=== PATIENT | male | born 1940 | race African-American/Black ===

== ENCOUNTER 2017-05-13 15:06 | Inpatient (IN) | payer MEDICARE, MEDICAID ==
[~2017-05-13] VITALS: Ht 193 cm; Wt 122.3 kg
[~2017-05-13 15:06] MED LIST: ALLO300T2 PO; ASPI-867 PO; CALC-25 PO; CHOL100053 PO; COLC0.6T66 PO; DOXA8TAB2 PO; FERR-43 PO; FOLI-43 PO; FURO40TA5 PO; LISI40TA4 PO; SIMV20TA2 PO; TRIA1TAB3; VALS160T23 PO; VERA-4 PO
[2017-05-13] MEDS ORDERED: ASPIRIN 81MG TABLET PO STA (15:53)
[2017-05-13 16:44] LABS: HEMATOCRIT. 40.9 % (42.0-52.0); HEMOGLOBIN. 13.3 g/dL (14.0-18.0); MEAN CORPUSCULAR HEMOGLOBIN 30.7 pg (28.0-32.0); MEAN CORPUSCULAR VOLUME 94.2 fL (80.0-94.0); MEAN PLATELET VOLUME 8.9 fl (7.4-10.4); PLATELET 140 x1000/uL (130-400); RED BLOOD CELL COUNT 4.34 mill/uL (4.7-6.1)
[2017-05-13 16:55] LABS: CHLORIDE 112 mEq/L (98-107)
[2017-05-13 17:02] LABS: PLATELET ESTIMATE NORMAL
[2017-05-13 17:04] LABS: INR 1.1; PARTIAL THROMBOPLASTIN TIME 24.9 sec (23.4-31.0); PROTHROMBIN TIME 11.4 sec (9.4-11.6); TROPONIN I 0.53 ng/mL (0.00-0.04)
[2017-05-13] MEDS ORDERED: ENOXAPARIN 100MG/ML SYR SUBCUT ONE (18:15)
[2017-05-13] MEDS ORDERED: LEVOFLOXACIN 750MG PREMIX 150 ML IV ONE (21:00)
[2017-05-13] MEDS ORDERED: SODIUM CHLORIDE 0.9% 1000ML BAG (SEPSIS BOLUS) IV ONE (21:00)
[2017-05-13] MEDS ORDERED: MORPHINE SULFATE 4 MG/ML CPJ (NOT FOR IM USE) IV PRN (23:45)
[2017-05-13] MEDS ORDERED: DOCUSATE SODIUM 100MG CAPSULE PO PRN (23:45)
[2017-05-13] MEDS ORDERED: NA PHOS,M-B/NA PHOS,DI-BA ENEMA 118ML PR PRN (23:45)
[2017-05-13] MEDS ORDERED: ONDANSETRON HCL 4MG/2ML VIAL IV PRN (23:45)
[2017-05-13] MEDS ORDERED: MAGNESIUM/ALUMINUM HYDROXIDE/SIMETHICONE 30ML UDC PO PRN (23:45)
[2017-05-13] MEDS ORDERED: CLONIDINE 0.1MG TABLET PO PRN (23:45)
[2017-05-13] MEDS ORDERED: HYDROCODONE/ACETAMINOPHEN 5/325MG TABLET PO PRN (23:45)
[2017-05-13] MEDS ORDERED: ACETAMINOPHEN 650MG SUPP PR PRN (23:45)
[2017-05-13] MEDS ORDERED: DIPHENHYDRAMINE 50MG/ML VIAL IV PRN (23:45)
[2017-05-13] MEDS ORDERED: ACETAMINOPHEN 325MG TABLET PO PRN (23:45)
[2017-05-13] MEDS ORDERED: IPRATROPIUM/ALBUTEROL 0.5-3(2.5)MG/3ML NEB INH PRN (23:45)
[2017-05-13] MEDS ORDERED: GUAIFENESIN 200MG/10ML SUGAR FREE UDC PO PRN (23:45)
[2017-05-13] MEDS ORDERED: HYDROCODONE/ACETAMINOPHEN 10/325MG TABLET PO PRN (23:45)
[2017-05-13] MEDS ORDERED: ACETAMINOPHEN 650MG/20.3ML UDC GT PRN (23:45)
[2017-05-14] MEDS ORDERED: ERGO400T7 PO (01:15)
[2017-05-14 04:13] VITALS: BP 117/78
[2017-05-14 04:49] VITALS: BP 157/81
[2017-05-14 07:49] LABS: BASOPHILS % 0.1 % (0.0-2.0); EOSINOPHILS % 2.2 % (0.0-5.0); HEMATOCRIT. 37.7 % (42.0-52.0); HEMOGLOBIN. 12.3 g/dL (14.0-18.0); LYMPHOCYTES % 15.1 % (20.0-50.0); MEAN CORPUSCULAR HEMOGLOBIN 30.8 pg (28.0-32.0); MEAN CORPUSCULAR VOLUME 94.8 fL (80.0-94.0); MEAN PLATELET VOLUME 9.2 fl (7.4-10.4); MONOCYTES % 9.5 % (2.0-8.0); NEUTROPHILS % 73.1 % (40.0-76.0); PLATELET 126 x1000/uL (130-400); RED BLOOD CELL COUNT 3.98 mill/uL (4.7-6.1); RED CELL DISTRIBUTION WIDTH 14.2 % (11.6-14.6)
[2017-05-14 08:07] LABS: CHLORIDE 112 mEq/L (98-107)
[2017-05-14 08:16] LABS: CREATINE KINASE 43 IU/L (39-308); HDL CHOLESTEROL 51 mg/dL (40-59); LDL CHOLESTEROL 69 mg/dL (5-100); TROPONIN I 0.36 ng/mL (0.00-0.04)
[2017-05-14 08:30] VITALS: BP 132/58
[2017-05-14] MEDS: FUROSEMIDE 40MG/4ML VIAL IVP SCH (10:44)
[2017-05-14 12:00] VITALS: BP 137/79
[2017-05-14] MEDS ORDERED: AMLODIPINE 5MG TABLET PO SCH (13:00)
[2017-05-14 13:54] LABS: CLARITY URINE CLEAR (CLEAR); COLOR URINE YELLOW (YELLOW); KETONES URINE NEGATIVE (NEGATIVE); LEUKOCYTE ESTERASE URINE NEGATIVE (NEGATIVE); NITRITE URINE NEGATIVE (NEGATIVE); OCCULT BLOOD URINE 1+ (NEGATIVE); PROTEIN URINE NEGATIVE (NEGATIVE); SPECIFIC GRAVITY URINE 1.013 (1.005-1.030)
[2017-05-14] MEDS ORDERED: ENOXAPARIN 100MG/ML SYR SUBCUT SCH (14:00)
[2017-05-14 16:00] VITALS: BP 121/67
[2017-05-14] MEDS ORDERED: LEVOFLOXACIN 500MG PREMIX 100 ML IV SCH (17:00)
[2017-05-14] MEDS ORDERED: ENOXAPARIN 120MG/0.8ML SYR SUBCUT SCH (19:00)
[2017-05-14 19:23] LABS: TROPONIN I 0.26 ng/mL (0.00-0.04)
[2017-05-14 20:00] VITALS: BP 125/68
[2017-05-14] MEDS: ATORVASTATIN CALCIUM 10MG TABLET PO SCH (20:26)
[2017-05-14] MEDS: SODIUM CHLORIDE 0.9% INJ 3ML FLUSH IVF SCH (20:26)
[2017-05-15] VITALS: BP 122/73
[2017-05-15 04:00] VITALS: BP 129/76
[2017-05-15] MEDS: SODIUM CHLORIDE 0.9% INJ 3ML FLUSH IVF SCH ×3 (05:31→21:22)
[2017-05-15 08:00] VITALS: BP 104/77
[2017-05-15] MEDS: AMLODIPINE 5MG TABLET PO SCH (09:00)
[2017-05-15] MEDS: FUROSEMIDE 40MG/4ML VIAL IVP SCH (09:51)
[2017-05-15 12:00] VITALS: BP 129/63
[2017-05-15] MEDS ORDERED: LEVO500T2 PO (12:08)
[2017-05-15 16:00] VITALS: BP 122/69
[2017-05-15 20:00] VITALS: BP 129/61
[2017-05-15] MEDS: ATORVASTATIN CALCIUM 10MG TABLET PO SCH (21:22)
[2017-05-16] VITALS: BP 145/60
[2017-05-16 04:00] VITALS: BP 134/71
[2017-05-16] MEDS: SODIUM CHLORIDE 0.9% INJ 3ML FLUSH IVF SCH ×3 (07:44→21:48)
[2017-05-16 08:00] VITALS: BP 123/67
[2017-05-16] MEDS: FUROSEMIDE 40MG TABLET PO SCH (09:20)
[2017-05-16] MEDS: AMLODIPINE 5MG TABLET PO SCH (09:20)
[2017-05-16 12:00] VITALS: BP 103/64
[2017-05-16 16:00] VITALS: BP 109/70
[2017-05-16] MEDS: APIXABAN 5 MG TABLET PO SCH ×2 (16:03→21:48)
[2017-05-16] MEDS ORDERED: DEXTROSE 50% WATER 50ML SYRINGE IV PRN (17:00)
[2017-05-16] MEDS ORDERED: INSULIN LISPRO 100 UNITS/ML SUBCUT SCH (17:15)
[2017-05-16] MEDS: BLOOD SUGAR DIAGNOSTIC STRIP TEST SCH ×2 (17:21→21:48)
[2017-05-16 20:00] VITALS: BP 133/70
[2017-05-16] MEDS ORDERED: GUAIFENESIN 600MG ER TABLET PO SCH (21:00)
[2017-05-16] MEDS: ATORVASTATIN CALCIUM 10MG TABLET PO SCH (21:48)
[2017-05-17] VITALS: BP 121/67
[2017-05-17 04:00] VITALS: BP 127/71
[2017-05-17] MEDS: SODIUM CHLORIDE 0.9% INJ 3ML FLUSH IVF SCH ×2 (06:15→19:25)
[2017-05-17 08:00] VITALS: BP 110/67
[2017-05-17] MEDS: AMLODIPINE 5MG TABLET PO SCH (09:00)
[2017-05-17] MEDS ORDERED: FENOFIBRATE NANOCRYSTALLIZED 48MG TABLET PO SCH (09:00)
[2017-05-17] MEDS: APIXABAN 5 MG TABLET PO SCH ×2 (10:22→21:20)
[2017-05-17] MEDS: FUROSEMIDE 40MG TABLET PO SCH (10:22)
[2017-05-17 12:00] VITALS: BP 111/35
[2017-05-17 16:00] VITALS: BP 120/66
[2017-05-17 20:00] VITALS: BP 127/70
[2017-05-17] MEDS: ATORVASTATIN CALCIUM 10MG TABLET PO SCH (21:20)
[2017-05-18] VITALS: BP 137/77
[2017-05-18 04:00] VITALS: BP 138/79
[2017-05-18] MEDS: SODIUM CHLORIDE 0.9% INJ 3ML FLUSH IVF SCH ×3 (07:00→21:28)
[2017-05-18 08:00] VITALS: BP 130/73
[2017-05-18] MEDS: APIXABAN 5 MG TABLET PO SCH ×2 (09:05→21:27)
[2017-05-18] MEDS: AMLODIPINE 5MG TABLET PO SCH (09:05)
[2017-05-18] MEDS: FUROSEMIDE 40MG TABLET PO SCH (09:06)
[2017-05-18 12:00] VITALS: BP 120/54
[2017-05-18 16:00] VITALS: BP 115/69
[2017-05-18 20:00] VITALS: BP 125/69
[2017-05-18] MEDS: ATORVASTATIN CALCIUM 10MG TABLET PO SCH (21:27)
[2017-05-19] VITALS: BP 137/73
[2017-05-19 04:00] VITALS: BP 137/78
[2017-05-19] MEDS: SODIUM CHLORIDE 0.9% INJ 3ML FLUSH IVF SCH (06:31)
[2017-05-19 08:00] VITALS: BP 137/78
[2017-05-19] MEDS: AMLODIPINE 5MG TABLET PO SCH (08:51)
[2017-05-19] MEDS: FUROSEMIDE 40MG TABLET PO SCH (08:52)
[2017-05-19] MEDS: APIXABAN 5 MG TABLET PO SCH (08:52)
[2017-05-19 12:00] VITALS: BP 130/76
[2017-05-19 14:19] VITALS: BP 130/76
== END 2017-05-19 15:17 | disposition home or self-care (01) | DRG 133 ==
LOC: ER 15:06 → 5WST 18:57 → ENRESERV 21:23
PROVIDERS: ADMIT Family Medicine; ATTEND Family Medicine
DX: J96.00 Acute respiratory failure, unspecified whether with hypoxia or hypercapnia (principal); J69.0 Pneumonitis due to inhalation of food and vomit; I50.43 Acute on chronic combined systolic (congestive) and diastolic (congestive) heart failure; I47.2 Ventricular tachycardia; J18.9 Pneumonia, unspecified organism; R53.2 Functional quadriplegia; E46 Unspecified protein-calorie malnutrition; I42.0 Dilated cardiomyopathy; I69.351 Hemiplegia and hemiparesis following cerebral infarction affecting right dominant side; I82.431 Acute embolism and thrombosis of right popliteal vein; I11.0 Hypertensive heart disease with heart failure; D69.6 Thrombocytopenia, unspecified; J44.0 Chronic obstructive pulmonary disease with (acute) lower respiratory infection; E86.0 Dehydration; I42.9 Cardiomyopathy, unspecified; I27.20 Pulmonary hypertension, unspecified; I35.0 Nonrheumatic aortic (valve) stenosis; I82.531 Chronic embolism and thrombosis of right popliteal vein; I89.0 Lymphedema, not elsewhere classified; D64.9 Anemia, unspecified; W18.30XA Fall on same level, unspecified, initial encounter; R79.89 Other specified abnormal findings of blood chemistry; I45.10 Unspecified right bundle-branch block; E66.9 Obesity, unspecified; E78.5 Hyperlipidemia, unspecified; E87.1 Hypo-osmolality and hyponatremia; I25.10 Atherosclerotic heart disease of native coronary artery without angina pectoris; N40.0 Benign prostatic hyperplasia without lower urinary tract symptoms; R62.7 Adult failure to thrive; Z79.01 Long term (current) use of anticoagulants; Z79.899 Other long term (current) drug therapy; Z99.3 Dependence on wheelchair; Z88.0 Allergy status to penicillin; Z79.82 Long term (current) use of aspirin; Z68.32 Body mass index [BMI] 32.0-32.9, adult
CPT/HCPCS: 36415; 71045; 80053; 80061; 81003; 82550; 82962; 83605; 83880; 84484; 85025; 85610; 85730; 87040; 87086; 92610; 93005; 93306; 93970; 96372; 97110; 97162; 97166; 97530; 97535; 99285; J1650; J1940; J1956; J7030; J7050; J7620

== ENCOUNTER 2017-06-20 00:31 | Inpatient (IN) | payer MEDICARE, MEDICAID ==
[~2017-06-20] VITALS: Ht 182.9 cm; Wt 112.5 kg
[~2017-06-20 00:31] MED LIST changes: +ALBU18HF2 IH; -ALLO300T2 PO; +APIX2.5T PO; +APIX5TAB PO; -CALC-25 PO; -CHOL100053 PO; -COLC0.6T66 PO; -DOXA8TAB2 PO; -FERR-43 PO; +FLUT1DIS3 IH; -FOLI-43 PO; -LISI40TA4 PO; -SIMV20TA2 PO; -TRIA1TAB3; -VALS160T23 PO; -VERA-4 PO
[2017-06-20] MEDS ORDERED: ALBUTEROL (0.083%) 2.5MG/3ML NEB HHN STA (01:16)
[2017-06-20] MEDS ORDERED: IPRATROPIUM BROMIDE (0.02%) 0.5MG/2.5ML NEB HHN STA (01:16)
[2017-06-20] MEDS ORDERED: METHYLPREDNISOLONE SOD SUCC 125 MG/2 ML VIAL IV STA (01:16)
[2017-06-20] MEDS ORDERED: MAGNESIUM 2 G PREMIX 50 ML IV ONE (01:30)
[2017-06-20 01:52] LABS: BG BASE EXCESS 4.8 mmol/L (-2.0-2.0); BG CARBOXYHEMOGLOBIN 1.5 % (0.5-1.5); BG DEOXYHEMOGLOBIN 1.6 % (0.0-5.0); BG FRACTION INSPIRED OXYGEN 45; BG HCO3 ACT 30.7 mmol/L (22.0-26.0); BG METHEMOGLOBIN 0.3 % (0.0-1.5); BG OXYGEN SATURATION 98.4 % (92.0-98.5); BG OXYHEMOGLOBIN 96.6 % (94.0-97.0); BG PCO2 50.4 mmHg (35.0-45.0); BG PH 7.402 (7.350-7.450); BG PO2 129.9 mmHg (75.0-100.0); BG SAMPLE SITE LEFT RADIAL; BG TOTAL HEMOGLOBIN 13.8 g/dL (12.0-18.0)
[2017-06-20] MEDS ORDERED: LEVOFLOXACIN 750MG PREMIX 150 ML IV ONE (02:15)
[2017-06-20 02:24] LABS: BASOPHILS % 0.4 % (0.0-2.0); EOSINOPHILS % 1.3 % (0.0-5.0); HEMATOCRIT. 39.2 % (42.0-52.0); HEMOGLOBIN. 12.9 g/dL (14.0-18.0); LYMPHOCYTES % 7.5 % (20.0-50.0); MEAN CORPUSCULAR HEMOGLOBIN 30.4 pg (28.0-32.0); MEAN CORPUSCULAR VOLUME 92.7 fL (80.0-94.0); MEAN PLATELET VOLUME 9.9 fl (7.4-10.4); NEUTROPHILS % 82.8 % (40.0-76.0); PLATELET 110 x1000/uL (130-400); RED BLOOD CELL COUNT 4.23 mill/uL (4.7-6.1); RED CELL DISTRIBUTION WIDTH 15.9 % (11.6-14.6)
[2017-06-20 02:26] LABS: CHLORIDE 111 mEq/L (98-107)
[2017-06-20 06:08] VITALS: BP 144/89
[2017-06-20] MEDS ORDERED: ALBUTEROL (0.083%) 2.5MG/3ML NEB HHN PRN (06:30)
[2017-06-20 06:45] VITALS: BP 144/89
[2017-06-20 08:00] VITALS: BP 123/86
[2017-06-20] MEDS ORDERED: FUROSEMIDE 40MG TABLET PO SCH (09:00)
[2017-06-20] MEDS ORDERED: ENOXAPARIN 40MG/0.4ML SYR SUBCUT SCH (09:00)
[2017-06-20] MEDS: POTASSIUM CHLORIDE 20MEQ TABLET SR PO SCH (09:18)
[2017-06-20] MEDS ORDERED: IPRATROPIUM/ALBUTEROL 0.5-3(2.5)MG/3ML NEB HHN PRN (09:30)
[2017-06-20 12:00] VITALS: BP 114/73
[2017-06-20] MEDS: LEVOFLOXACIN 500MG TABLET PO SCH (12:38)
[2017-06-20] MEDS: METHYLPREDNISOLONE SOD SUCC 40 MG/ML VIAL IV SCH ×3 (12:38→20:54)
[2017-06-20] MEDS: BUDESONIDE 0.5MG/2ML NEB HHN SCH ×2 (12:44→21:22)
[2017-06-20] MEDS: IPRATROPIUM/ALBUTEROL 0.5-3(2.5)MG/3ML NEB HHN SCH ×3 (12:48→21:22)
[2017-06-20 16:00] VITALS: BP 117/77
[2017-06-20] MEDS: APIXABAN 5 MG TABLET PO SCH (17:29)
[2017-06-20] MEDS: FUROSEMIDE 40MG/4ML VIAL IVP SCH (17:29)
[2017-06-20 17:46] LABS: CLARITY URINE TURBID (CLEAR); COLOR URINE ORANGE (YELLOW); KETONES URINE NEGATIVE (NEGATIVE); LEUKOCYTE ESTERASE URINE 1+ (NEGATIVE); NITRITE URINE POSITIVE (NEGATIVE); OCCULT BLOOD URINE 3+ (NEGATIVE); PROTEIN URINE 3+ (NEGATIVE); SPECIFIC GRAVITY URINE 1.025 (1.005-1.030)
[2017-06-20 18:31] LABS: *AMPHETAMINES SCREEN URINE NEGATIVE (NEGATIVE); *BARBITURATES SCREEN URINE NEGATIVE (NEGATIVE); *BENZODIAZEPINES SCREEN URINE NEGATIVE (NEGATIVE)
[2017-06-20 18:32] LABS: *COCAINE SCREEN URINE NEGATIVE (NEGATIVE); CANNABINOID URINE SCREEN NEGATIVE (NEGATIVE); METHADONE URINE SCREEN NEGATIVE (NEGATIVE); OPIATES URINE SCREEN PRESUMTIVE POSITIVE (NEGATIVE); PHENCYCLIDINE URINE SCREEN NEGATIVE (NEGATIVE)
[2017-06-20 20:00] VITALS: BP 112/64
[2017-06-21] VITALS: BP 110/69
[2017-06-21] MEDS: IPRATROPIUM/ALBUTEROL 0.5-3(2.5)MG/3ML NEB HHN SCH ×7 (00:44→23:51)
[2017-06-21 04:00] VITALS: BP 103/70
[2017-06-21] MEDS: METHYLPREDNISOLONE SOD SUCC 40 MG/ML VIAL IV SCH ×3 (05:45→21:38)
[2017-06-21 06:18] LABS: HEMATOCRIT. 36.3 % (42.0-52.0); HEMOGLOBIN. 12.2 g/dL (14.0-18.0); MEAN CORPUSCULAR HEMOGLOBIN 30.9 pg (28.0-32.0); MEAN CORPUSCULAR VOLUME 92.4 fL (80.0-94.0); MEAN PLATELET VOLUME 10.4 fl (7.4-10.4); PLATELET 109 x1000/uL (130-400); RED BLOOD CELL COUNT 3.93 mill/uL (4.7-6.1); RED CELL DISTRIBUTION WIDTH 16.2 % (11.6-14.6)
[2017-06-21 08:00] VITALS: BP_SYST 101; BP_SYST 96; BP_DIAS 63; BP_DIAS 65
[2017-06-21] MEDS: APIXABAN 5 MG TABLET PO SCH ×2 (08:53→18:26)
[2017-06-21] MEDS: LEVOFLOXACIN 500MG TABLET PO SCH (08:53)
[2017-06-21] MEDS: POTASSIUM CHLORIDE 20MEQ TABLET SR PO SCH (08:53)
[2017-06-21] MEDS: FUROSEMIDE 40MG/4ML VIAL IVP SCH ×2 (08:53→18:26)
[2017-06-21] MEDS: BUDESONIDE 0.5MG/2ML NEB HHN SCH ×2 (09:35→19:48)
[2017-06-21 12:00] VITALS: BP 106/61
[2017-06-21 12:32] LABS: PLATELET ESTIMATE SLIGHTLY DECREASED
[2017-06-21 16:00] VITALS: BP 99/52
[2017-06-21 20:00] VITALS: BP 103/57
[2017-06-21] MEDS: NEOMY SULF/BACITRAC ZN/POLY OINT 28GM TOP SCH (21:38)
[2017-06-21] MEDS ORDERED: HYDROCODONE/ACETAMINOPHEN 5/325MG TABLET PO PRN (23:15)
[2017-06-22] VITALS: BP 110/62
[2017-06-22] MEDS: IPRATROPIUM/ALBUTEROL 0.5-3(2.5)MG/3ML NEB HHN SCH ×6 (01:12→21:41)
[2017-06-22 04:00] VITALS: BP 106/53
[2017-06-22] MEDS: METHYLPREDNISOLONE SOD SUCC 40 MG/ML VIAL IV SCH ×3 (05:50→21:15)
[2017-06-22 06:34] LABS: HEMATOCRIT. 33.4 % (42.0-52.0); HEMOGLOBIN. 11.1 g/dL (14.0-18.0); MEAN CORPUSCULAR HEMOGLOBIN 30.6 pg (28.0-32.0); MEAN CORPUSCULAR VOLUME 92.3 fL (80.0-94.0); MEAN PLATELET VOLUME 10.4 fl (7.4-10.4); PLATELET 105 x1000/uL (130-400); RED BLOOD CELL COUNT 3.62 mill/uL (4.7-6.1); RED CELL DISTRIBUTION WIDTH 15.7 % (11.6-14.6)
[2017-06-22 08:00] VITALS: BP 112/65
[2017-06-22 08:30] LABS: PLATELET ESTIMATE SLIGHTLY DECREASED
[2017-06-22] MEDS: BUDESONIDE 0.5MG/2ML NEB HHN SCH ×2 (09:02→21:40)
[2017-06-22] MEDS: APIXABAN 5 MG TABLET PO SCH ×2 (09:18→16:24)
[2017-06-22] MEDS: FUROSEMIDE 40MG/4ML VIAL IVP SCH (09:18)
[2017-06-22] MEDS: NEOMY SULF/BACITRAC ZN/POLY OINT 28GM TOP SCH (09:19)
[2017-06-22] MEDS: LEVOFLOXACIN 500MG TABLET PO SCH (09:19)
[2017-06-22] MEDS: POTASSIUM CHLORIDE 20MEQ TABLET SR PO SCH (09:19)
[2017-06-22 12:00] VITALS: BP 120/74
[2017-06-22 16:00] VITALS: BP 110/70
[2017-06-22 20:00] VITALS: BP 113/67
[2017-06-23] VITALS: BP 118/70
[2017-06-23] MEDS: IPRATROPIUM/ALBUTEROL 0.5-3(2.5)MG/3ML NEB HHN SCH ×5 (01:10→22:33)
[2017-06-23 04:00] VITALS: BP 116/69
[2017-06-23] MEDS: METHYLPREDNISOLONE SOD SUCC 40 MG/ML VIAL IV SCH ×3 (05:25→21:07)
[2017-06-23 07:35] LABS: HEMATOCRIT. 34.3 % (42.0-52.0); HEMOGLOBIN. 11.5 g/dL (14.0-18.0); MEAN CORPUSCULAR HEMOGLOBIN 30.9 pg (28.0-32.0); MEAN CORPUSCULAR VOLUME 92.6 fL (80.0-94.0); MEAN PLATELET VOLUME 10.1 fl (7.4-10.4); PLATELET 108 x1000/uL (130-400); RED BLOOD CELL COUNT 3.71 mill/uL (4.7-6.1); RED CELL DISTRIBUTION WIDTH 16.2 % (11.6-14.6)
[2017-06-23 07:54] LABS: CHLORIDE 105 mEq/L (98-107)
[2017-06-23 08:00] VITALS: BP 101/62
[2017-06-23 08:35] LABS: PLATELET ESTIMATE SLIGHTLY DECREASED
[2017-06-23] MEDS: APIXABAN 5 MG TABLET PO SCH ×2 (08:50→19:46)
[2017-06-23] MEDS: NEOMY SULF/BACITRAC ZN/POLY OINT 28GM TOP SCH (08:51)
[2017-06-23] MEDS: FUROSEMIDE 20MG TABLET PO SCH ×2 (08:51→21:07)
[2017-06-23] MEDS: POTASSIUM CHLORIDE 20MEQ TABLET SR PO SCH (08:51)
[2017-06-23] MEDS: LEVOFLOXACIN 500MG TABLET PO SCH (09:55)
[2017-06-23] MEDS: BUDESONIDE 0.5MG/2ML NEB HHN SCH (10:00)
[2017-06-23 12:00] VITALS: BP 107/61
[2017-06-23 16:00] VITALS: BP 134/85
[2017-06-23 20:00] VITALS: BP 118/75
[2017-06-24] VITALS: BP 120/77
[2017-06-24] MEDS: IPRATROPIUM/ALBUTEROL 0.5-3(2.5)MG/3ML NEB HHN SCH ×7 (01:27→23:43)
[2017-06-24 04:00] VITALS: BP 128/82
[2017-06-24 05:46] LABS: HEMATOCRIT. 34.8 % (42.0-52.0); HEMOGLOBIN. 11.6 g/dL (14.0-18.0); MEAN CORPUSCULAR HEMOGLOBIN 30.8 pg (28.0-32.0); MEAN CORPUSCULAR VOLUME 92.4 fL (80.0-94.0); MEAN PLATELET VOLUME 10.3 fl (7.4-10.4); PLATELET 117 x1000/uL (130-400); RED BLOOD CELL COUNT 3.76 mill/uL (4.7-6.1)
[2017-06-24] MEDS: METHYLPREDNISOLONE SOD SUCC 40 MG/ML VIAL IV SCH (06:11)
[2017-06-24 06:34] LABS: CHLORIDE 105 mEq/L (98-107)
[2017-06-24 08:00] VITALS: BP 114/68
[2017-06-24] MEDS: POTASSIUM CHLORIDE 20MEQ TABLET SR PO SCH (09:20)
[2017-06-24] MEDS: NEOMY SULF/BACITRAC ZN/POLY OINT 28GM TOP SCH (09:20)
[2017-06-24] MEDS: APIXABAN 5 MG TABLET PO SCH ×2 (09:20→18:37)
[2017-06-24] MEDS: FUROSEMIDE 20MG TABLET PO SCH ×2 (09:20→22:05)
[2017-06-24] MEDS: LEVOFLOXACIN 500MG TABLET PO SCH (11:06)
[2017-06-24 12:00] VITALS: BP 116/73
[2017-06-24 16:00] VITALS: BP 127/80
[2017-06-24] MEDS: PREDNISONE 20MG TABLET PO SCH (18:37)
[2017-06-24 19:56] LABS: PLATELET ESTIMATE DECREASED
[2017-06-24 20:00] VITALS: BP 134/79
[2017-06-25] VITALS: BP 136/85
[2017-06-25 04:00] VITALS: BP 142/83
[2017-06-25] MEDS: IPRATROPIUM/ALBUTEROL 0.5-3(2.5)MG/3ML NEB HHN SCH ×5 (04:02→20:03)
[2017-06-25 08:00] VITALS: BP 123/80
[2017-06-25] MEDS: POTASSIUM CHLORIDE 20MEQ TABLET SR PO SCH (09:07)
[2017-06-25] MEDS: FUROSEMIDE 20MG TABLET PO SCH ×2 (09:07→20:54)
[2017-06-25] MEDS: PREDNISONE 20MG TABLET PO SCH ×2 (09:07→18:03)
[2017-06-25] MEDS: APIXABAN 5 MG TABLET PO SCH ×2 (09:07→17:01)
[2017-06-25] MEDS: NEOMY SULF/BACITRAC ZN/POLY OINT 28GM TOP SCH (09:08)
[2017-06-25] MEDS: LEVOFLOXACIN 500MG TABLET PO SCH (11:53)
[2017-06-25 12:00] VITALS: BP 131/84
[2017-06-25 16:00] VITALS: BP 126/81
[2017-06-25 20:00] VITALS: BP 146/82
[2017-06-26] VITALS: BP 137/86
[2017-06-26] MEDS: IPRATROPIUM/ALBUTEROL 0.5-3(2.5)MG/3ML NEB HHN SCH ×5 (00:31→17:28)
[2017-06-26 04:00] VITALS: BP 136/80
[2017-06-26 08:00] VITALS: BP 139/80
[2017-06-26] MEDS: FUROSEMIDE 20MG TABLET PO SCH (08:52)
[2017-06-26] MEDS: APIXABAN 5 MG TABLET PO SCH ×2 (08:52→16:18)
[2017-06-26] MEDS: POTASSIUM CHLORIDE 20MEQ TABLET SR PO SCH (08:52)
[2017-06-26] MEDS: NEOMY SULF/BACITRAC ZN/POLY OINT 28GM TOP SCH (08:59)
[2017-06-26] MEDS ORDERED: PREDNISONE 20MG TABLET PO SCH (09:00)
[2017-06-26 12:00] VITALS: BP 126/69
[2017-06-26] MEDS: LEVOFLOXACIN 500MG TABLET PO SCH (12:19)
[2017-06-26 16:00] VITALS: BP 130/71
[2017-06-26 17:58] VITALS: BP 130/71
== END 2017-06-26 20:25 | DRG 720 ==
LOC: ER 00:31 → 7WST 02:14 → EDBEDREQTM 02:15 → EDBEDREQ 02:15 → ENRESERV 04:31 → 7WST 06:24
PROVIDERS: ADMIT Internal Medicine Nephrology; ATTEND Internal Medicine Nephrology
DX: A41.9 Sepsis, unspecified organism (principal); J96.00 Acute respiratory failure, unspecified whether with hypoxia or hypercapnia; E43 Unspecified severe protein-calorie malnutrition; I50.43 Acute on chronic combined systolic (congestive) and diastolic (congestive) heart failure; J18.9 Pneumonia, unspecified organism; I42.9 Cardiomyopathy, unspecified; D69.6 Thrombocytopenia, unspecified; E87.0 Hyperosmolality and hypernatremia; I13.0 Hypertensive heart and chronic kidney disease with heart failure and stage 1 through stage 4 chronic kidney disease, or unspecified chronic kidney disease; I27.20 Pulmonary hypertension, unspecified; N39.0 Urinary tract infection, site not specified; J44.1 Chronic obstructive pulmonary disease with (acute) exacerbation; D63.8 Anemia in other chronic diseases classified elsewhere; E66.9 Obesity, unspecified; E78.5 Hyperlipidemia, unspecified; E87.6 Hypokalemia; I25.10 Atherosclerotic heart disease of native coronary artery without angina pectoris; I35.0 Nonrheumatic aortic (valve) stenosis; I48.0 Paroxysmal atrial fibrillation; I49.3 Ventricular premature depolarization; J44.0 Chronic obstructive pulmonary disease with (acute) lower respiratory infection; N18.9 Chronic kidney disease, unspecified; I87.2 Venous insufficiency (chronic) (peripheral); R47.01 Aphasia; W18.39XA Other fall on same level, initial encounter; Y93.89 Activity, other specified; Y92.89 Other specified places as the place of occurrence of the external cause; Y99.8 Other external cause status; Z79.01 Long term (current) use of anticoagulants; I69.351 Hemiplegia and hemiparesis following cerebral infarction affecting right dominant side; Z99.3 Dependence on wheelchair; Z68.33 Body mass index [BMI] 33.0-33.9, adult
CPT/HCPCS: 36415; 36600; 51702; 71045; 80048; 80053; 80305; 81003; 82375; 82805; 83605; 83735; 83880; 84484; 85025; 87040; 87086; 92610; 93005; 93306; 94640; 96365; 96367; 96375; 99285; A6261; J1650; J1940; J1956; J2920; J2930; J3475; J7050; J7512; J7611; J7620; J7626; A4315